=== PATIENT | male | born 1985 | race African-American/Black ===

== ENCOUNTER 2023-11-29 01:51 | Emergency (ER) | payer SELFPAY ==
[2023-11-29 01:58] VITALS: BP 155/92; PULSE 67; RESP 16; TEMP 37.2; O2SAT 99
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
[2023-11-29] MEDS: Amoxicillin 875/Clav. 125 TAB PO (03:27)
[2023-11-29] MEDS: Tetanus & Diphtheria Tox,ADULT 0.5 ML VIAL IM (03:27)
== END 2023-11-29 03:28 | disposition home or self-care (01) ==
LOC: ER 04:02
PROVIDERS: Emergency Provider Emergency Medicine; PCP Family Medicine
DX: S01.511A Laceration without foreign body of lip, initial encounter (principal); Z23 Encounter for immunization; W50.3XXA Accidental bite by another person, initial encounter; Y93.89 Activity, other specified
CPT/HCPCS: 12011; 90471; 90714; 99283